=== PATIENT | male | born 1990 | race Caucasian/White ===

== ENCOUNTER 2017-05-28 13:25 | Emergency (ER) | payer BC ==
[2017-05-28] MEDS ORDERED: DIPH,PERTUS(ACELL)TETVAC-LF 0.5 ML VIAL IM ONE (13:41)
[2017-05-28] MEDS ORDERED: LEVOFLOXACIN 750 MG TAB PO STA (14:12)
--- NOTE | 2017-05-28 14:13 | ED ---
Wound/Laceration HPI - General Chief Complaint: Wound/Laceration Stated Complaint: Stepped on nails Time Seen by Provider: 05/28/17 13:41 Source: patient, RN notes reviewed, old records reviewed Mode of arrival: ambulatory Limitations: no limitations - History of Present Illness Initial Comments: This is a 26-year-old male presents emergency Department chief complaint of stepping on a kait nail in both left and right foot. Patient reports that he was taking down an old barn and stepped on a wooden board with any of sticking through. Patient reports that the nail went through his shoe and sock. Patient denies any difficulty with range of motion of his feet. He reports that the left foot puncture wound is between the first and second metatarsals. The right foot puncture wound is in the webspace between the first metatarsal and the first digit. Patient reports that he has no recollection of last tetanus shot. Patient denies any recent fever, chills, shortness of breath, chest pain, back pain, abdominal pain, nausea vomiting, numbness or tingling, dysuria or hematuria, constipation or diarrhea, headaches or visual changes, or any other current symptoms - Related Data Previous Rx's Medication Instructions Recorded Levofloxacin [Levaquin] 750 mg PO DAILY #7 tab 05/28/17 Allergies Allergy/AdvReac Type Severity Reaction Status Date / Time No Known Allergies Allergy Verified 05/28/17 13:44 Review of Systems ROS Statement: Those systems with pertinent positive or pertinent negative responses have been documented in the HPI. ROS Other: All systems not noted in ROS Statement are negative. Past Medical History Additional Past Medical History / Comment(s): chi at 7 years old History of Any Multi-Drug Resistant Organisms: None Reported Past Surgical History: No Surgical Hx Reported Past Psychological History: No Psychological Hx Reported Smoking Status: Current every day smoker Past Alcohol Use History: None Reported, Occasional Past Drug Use History: None Reported General Exam - General Exam Comments Initial Comments: this is a 26-year-old male. Patient is on appear to be in any acute distress. Limitations: no limitations General appearance: alert, in no apparent distress Head exam: Present: atraumatic, normocephalic, normal inspection Eye exam: Present: normal appearance, PERRL, EOMI. Absent: scleral icterus, conjunctival injection, periorbital swelling ENT exam: Present: normal exam, mucous membranes moist Neck exam: Present: normal inspection. Absent: tenderness, meningismus, lymphadenopathy Respiratory exam: Present: normal lung sounds bilaterally. Absent: respiratory distress, wheezes, rales, rhonchi, stridor Cardiovascular Exam: Present: regular rate, normal rhythm, normal heart sounds. Absent: systolic murmur, diastolic murmur, rubs, gallop, clicks Right 1 - puncture wound from nail 2 - puncture wound from nail Back exam: Present: normal inspection Neurological exam: Present: alert, oriented X3, CN II-XII intact Course Vital Signs 05/28/17 05/28/17 13:40 15:12 Temperature 97.8 F 98 F Pulse Rate 61 74 Respiratory 18 20 Rate Blood Pressure 115/67 101/55 O2 Sat by Pulse 100 98 Oximetry Procedures - Incision & Drainage Site: foot (bilateral feet at puncture wound site. ) Anesthetic Used: lidocaine 1% Amount (mLs): 4 I&D Cleaning Method: Iodine Sterile Field Used?: Yes Scalpel Used: #15 I&D Drainage Obtained: Other (I attempted to "keyhole" the area of puncture wounds ) Culture Obtained?: No Patient Tolerated Procedure: well, no complications Medical Decision Making - Medical Decision Making This is a 26-year-old male presents emergency Department chief complaint of stepping on a kait nail in both left and right foot. Patient reports that he was taking down an old barn and stepped on a wooden board with any of sticking through. Patient reports that the nail went through his shoe and sock. Patient denies any difficulty with range of motion of his feet. He reports that the left foot puncture wound is between the first and second metatarsals. The right foot puncture wound is in the webspace between the first metatarsal and the first digit. Patient received xray of foot. No fracture, no foreign body , no evidence of free air. Patient wound were anesthetized with lidocaine and I did open up the area on both feet to allow for drainage and irrigated with iodine and sterile water. Patient updated on tetanus. Patient given PO levaquin and will be discharged on levaquin for pseudomonas coverage. Patient advised to return if there are any alarming signs or symptoms including redness, swelling or drainage. Return parameters discussed. - Radiology Data Radiology results: report reviewed bilateral foot xray are negative for any acute process. Disposition Clinical Impression: Puncture wound of foot Disposition: HOME SELF-CARE Condition: Good Instructions: Puncture Wound (ED) Additional Instructions: patient advised to do frequent Epsom salts soaks. Monitor for any redness swelling or drainage over both feet. Return to emergency department if any of that does occur despite being on antibiotics. Patient should complete entire antibiotic prescription. Prescriptions: Levofloxacin [Levaquin] 750 mg PO DAILY #7 tab Referrals: Kobe Sotomayor DO [Primary Care Provider] - 1-2 days Time of Disposition: 14:51
--- NOTE | 2017-05-28 14:28 | XR ---
EXAMINATION TYPE: XR foot complete bilateral DATE OF EXAM: 05/28/2017 CLINICAL HISTORY: Foot pain. Nail within both feet TECHNIQUE: Frontal, lateral, and oblique images of both feet are obtained. COMPARISON: None FINDINGS: There is no acute fracture/dislocation evident in either foot. The joint spaces in the fe et appear within normal limits. The overlying soft tissue appears unremarkable. Small Achilles enthe sophyte is seen on the left. Hallux valgus deformity is present bilaterally. No subcutaneous emphysem a or radiopaque foreign body. IMPRESSION: There is no acute fracture or dislocation in either foot. No radiopaque foreign body or subcutaneous emphysema.
[2017-05-28 15:13] VITALS: BP 101/55; PULSE 74; RESP 20; TEMP 98
== END 2017-05-28 15:12 | disposition home or self-care (01) ==
LOC: EC 13:25
DX: S91.331A Puncture wound without foreign body, right foot, initial encounter (principal); S91.332A Puncture wound without foreign body, left foot, initial encounter; F17.200 Nicotine dependence, unspecified, uncomplicated; Z23 Encounter for immunization; W22.8XXA Striking against or struck by other objects, initial encounter; Y92.71 Barn as the place of occurrence of the external cause; Y93.01 Activity, walking, marching and hiking
CPT/HCPCS: 10060; 90471; 90715; 99284

== ENCOUNTER 2018-08-25 16:42 | Emergency (ER) | payer BC ==
[2018-08-25] MEDS ORDERED: ORPHENADRINE 30 MG/ML 2 ML VIAL IM STA (17:25)
[2018-08-25] MEDS ORDERED: methylPREDNISolone SOD SUCCI 125 MG/2 ML VIAL IM ONE (17:25)
[2018-08-25] MEDS ORDERED: KETOROLAC 60 MG/2 ML VIAL IM STA (17:25)
[2018-08-25] MEDS ORDERED: HYDROcodone/APAP 5-325MG 1 EACH TAB PO STA (17:25)
--- NOTE | 2018-08-25 17:30 | ED ---
Back Pain HPI - General Chief Complaint: Back Pain/Injury Stated Complaint: Lumbar Pain Time Seen by Provider: 08/25/18 16:55 Source: patient, RN notes reviewed, old records reviewed Limitations: no limitations - History of Present Illness Initial Comments: Patient is a 28-year-old female presents emergency Department chief complaint of back pain radiating down the left leg. Patient reports these been having this lower back pain for the past 2 weeks she reports it's been acutely worse today. He denies any falls or trauma. He denies any saddle anesthesias. Patient states that he's had no recent fevers or chills. He denies any dysuria hematuria. Patient states that he has had tingling down the buttocks of the lower leg. - Related Data Previous Rx's Medication Instructions Recorded Cyclobenzaprine [Flexeril] 10 mg PO TID #12 tab 08/25/18 HYDROcodone/APAP 5-325MG [[place] 1 tab PO Q6HR PRN #12 tab 08/25/18 5-325] Ibuprofen 800 mg PO TID #20 tablet 08/25/18 Allergies Allergy/AdvReac Type Severity Reaction Status Date / Time No Known Allergies Allergy Verified 08/25/18 18:47 Review of Systems ROS Statement: Those systems with pertinent positive or pertinent negative responses have been documented in the HPI. ROS Other: All systems not noted in ROS Statement are negative. Past Medical History Additional Past Medical History / Comment(s): chi at 7 years old History of Any Multi-Drug Resistant Organisms: None Reported Past Surgical History: No Surgical Hx Reported Past Psychological History: No Psychological Hx Reported Smoking Status: Current every day smoker Past Alcohol Use History: None Reported, Occasional Past Drug Use History: None Reported General Exam - General Exam Comments Initial Comments: 28-year-old male Patient Patient appears in moderate discomfort. Limitations: no limitations General appearance: alert, in no apparent distress Head exam: Present: atraumatic, normocephalic, normal inspection Eye exam: Present: normal appearance, PERRL, EOMI. Absent: scleral icterus, conjunctival injection, periorbital swelling ENT exam: Present: normal exam, mucous membranes moist Neck exam: Present: normal inspection. Absent: tenderness, meningismus, lymphadenopathy Respiratory exam: Present: normal lung sounds bilaterally. Absent: respiratory distress, wheezes, rales, rhonchi, stridor Cardiovascular Exam: Present: regular rate, normal rhythm, normal heart sounds. Absent: systolic murmur, diastolic murmur, rubs, gallop, clicks GI/Abdominal exam: Present: soft, normal bowel sounds. Absent: distended, tenderness, guarding, rebound, rigid Extremities exam: Present: normal inspection, full ROM, normal capillary refill. Absent: tenderness, pedal edema, joint swelling, calf tenderness Back exam: Present: normal inspection, tenderness (Lumbar spinal tenderness), other (Dose over the left sciatic notch.) Neurological exam: Present: alert, oriented X3, CN II-XII intact Psychiatric exam: Present: normal affect, normal mood Skin exam: Present: warm, dry, intact, normal color. Absent: rash Course Vital Signs 08/25/18 16:44 Temperature 97.7 F Pulse Rate 94 Respiratory 20 Rate Blood Pressure 138/84 O2 Sat by Pulse 99 Oximetry Medical Decision Making - Medical Decision Making Patient is a 28-year-old male presents emergency Department due to complaint of lower back pain radiating down left leg. He reports his been going on for 2 weeks is more severe at the past day. Patient at this time is positive straight leg test. Lumbar spinal tenderness and sciatic notch tenderness. Patient had this time was given IM Toradol and Norflex and Solu-Medrol. One by mouth Florence. Patient does appear quite some pain pain. Patient's lumbar spine x-ray was reviewed and normal. At this time we'll treat the Patient for sciatic nerve pain, with a temperature medication short course of pain medicine. Opiate started talking form was completed. 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 Given a note for work. Disposition Clinical Impression: Lumbar back pain with radiculopathy affecting left lower extremity, Sciatica Disposition: HOME SELF-CARE Condition: Good Instructions: Acute Low Back Pain (ED) Additional Instructions: Patient's is to rest, alternate between ice to the lower back. Patient should follow-up with your primary care physician. Return to the emergency department if any alarming signs or symptoms occur. Prescriptions: Cyclobenzaprine [Flexeril] 10 mg PO TID #12 tab HYDROcodone/APAP 5-325MG [[place] 5-325] 1 tab PO Q6HR PRN #12 tab PRN Reason: Pain Ibuprofen 800 mg PO TID #20 tablet Is patient prescribed a controlled substance at d/c from ED?: Yes When asked, does pt state using other controlled substances?: No If prescribed controlled substance>3 days was MAPS reviewed?: Yes If opioid is for acute pain is fill amount 7 days or less?: Yes If Rx opioid, was Start Talking consent form obtained?: Yes Referrals: Kobe Sotomayor DO [Primary Care Provider] - 1-2 days Tucker Crystal DO [Doctor of Osteopathic Medicine] - 1-2 days Time of Disposition: 18:48
--- NOTE | 2018-08-25 18:47 | XR ---
EXAMINATION TYPE: XR lumbar spine 2 or 3V DATE OF EXAM: 08/25/2018 COMPARISON: NONE HISTORY: Low back pain TECHNIQUE: 3 views FINDINGS: Lumbar vertebra have normal spacing and alignment. Posterior elements are intact. Sacroilia c joints appear normal. IMPRESSION: Normal lumbar spine exam.
[2018-08-25 19:13] VITALS: BP 104/64; PULSE 51; RESP 16; TEMP 97.9
== END 2018-08-25 19:05 | disposition home or self-care (01) ==
LOC: EC 16:42
DX: M54.16 Radiculopathy, lumbar region (principal); M54.42 Lumbago with sciatica, left side; F17.200 Nicotine dependence, unspecified, uncomplicated
CPT/HCPCS: 72100; 99284; 96372 ×3; J2360; J2930; J1885